=== PATIENT | female | born 1975 | race Caucasian/White ===

== ENCOUNTER 2017-03-05 18:46 | Emergency (ER) | payer MEDICAID ==
[~2017-03-05] VITALS: Ht 152.4 cm; Wt 77.0 kg
[~2017-03-05 18:46] MED LIST: FLUO-191 PO
[2017-03-05] MEDS ORDERED: ALBUTEROL SULFATE HFA 90 MCG/PUFF 8 GM INHALER IH ONE (22:45)
[2017-03-05 22:55] VITALS: BP 121/68
== END 2017-03-05 22:58 | disposition home or self-care (01) ==
LOC: EMS 18:48
DX: F41.9 Anxiety disorder, unspecified (principal); J45.909 Unspecified asthma, uncomplicated; Z88.0 Allergy status to penicillin
CPT/HCPCS: 94640; 99284; J3535